=== PATIENT | male | born 1955 | race Caucasian/White ===

== ENCOUNTER 2023-03-31 11:53 | Outpatient (REF) | payer MEDICARE, SELFPAY ==
[2023-03-31 14:55] LABS: HCT 44.1 % (40.0-50.0); HGB 14.4 g/dL (13.5-17.5); MCHC 32.7 % (32.0-36.0); MCV 95 fL (80-95); MPV 9.2 fL (8.0-11.0); Platelet Count 321 10^3/uL (130-400); RBC 4.64 10^6/uL (4.36-5.78); RDW-SD 48.7 fL; WBC 6.34 10^3/uL (4.4-10.8)
[2023-03-31 15:25] LABS: Hemoglobin A1C 5.2 % (<5.7)
[2023-03-31 16:20] LABS: ALT 16 U/L (16-63); AST 14 U/L (15-37); Albumin 3.7 g/dL (3.4-5.0); Alkaline Phosphatase 59 U/L (46-116); Anion Gap 6.1 mmol/L (3-11); BUN 17 mg/dL (7-18); Bilirubin, Total 0.9 mg/dL (0.2-1.0); CO2 27.9 mmol/L (21.0-32.0); Calcium 8.7 mg/dL (8.5-10.1); Calculated LDL 76 mg/dL (<100); Chloride 106 mmol/L (98-107); Cholesterol 173 mg/dL (<200); Estimated GFR 81.98 (mL/min/1.73m2); Glucose 98 mg/dL (74-106); HDL Cholesterol 88 mg/dL (40-60); Potassium 4.5 mmol/L (3.5-5.1); Sodium 140 mmol/L (136-145); TSH 1.39 uIU/mL (0.36-3.74); Total Protein 6.5 g/dL (6.4-8.2); Triglyceride 48 mg/dL (<150); Vitamin B12 190 pg/mL (193-986)
[2023-03-31 16:47] LABS: FREE T4 0.83 ng/dL (0.76-1.46)
[2023-04-05 10:07] LABS: Methylmalonic Acid 0.25 nmol/mL (<=0.40)
== END 2023-03-31 11:54 | disposition home or self-care (01) ==
LOC: NCHCN 11:53
PROVIDERS: Visit Provider Physician Assistant
DX: Z12.5 Encounter for screening for malignant neoplasm of prostate (principal); Z13.1 Encounter for screening for diabetes mellitus; Z13.220 Encounter for screening for lipoid disorders; G62.9 Polyneuropathy, unspecified
CPT/HCPCS: 80053; 80061; 80186; 84153; 85027; 82607; 83036; 84439; 84443

== ENCOUNTER → 2023-09-23 10:49 | Outpatient (BNVA) | payer MEDICARE, SELFPAY | PROVIDERS: PCP Physician Assistant; Referring Provider Physician Assistant; Visit Provider Physical Therapy Assistant | DX: Z12.11 Encounter for screening for malignant neoplasm of colon (principal) ==

== ENCOUNTER 2023-10-07 07:34 | Day surgery (SDC) | payer MEDICARE, SELFPAY ==
--- NOTE | 2023-10-06 17:09 | W.PM.DSUDISC ---
Date of service: 10/07/23 Time of Service: 10:04 Discharge Plan Disposition Patient Disposition: Home Condition: Good Discharge Details Reason For Visit: screening colonoscopy Attending Provider: Bro Rosenbaum Primary Care Provider: Elroy Rader Home Meds and New Rx's Prescriptions: Continued mecobalamin (vitamin B12) 1,000 mcg tablet,chewable 1,000 mcg PO DAILY hydroxyzine HCl 25 mg tablet 25 mg PO QHS Patient Comments: Pt. stated has not used in awhile gabapentin 100 mg capsule 100 mg PO TID Patient Comments: Pt. states has not started yet sertraline [Zoloft] 25 mg tablet 25 mg PO DAILY Discontinued polyethylene glycol 3350 17 gram/dose powder 238 g PO ONCE Qty: 238 0RF Rx Instructions: take per colonoscopy instructions bisacodyl [Dulcolax (bisacodyl)] 5 mg tablet,delayed release (DR/EC) 5 mg PO ONCE Qty: 4 0RF Rx Instructions: take per colonoscopy instructions Discharge Instructions Instructions: Diverticulosis (GEN), Colorectal Polyps (GEN), Diverticulosis Diet (GEN) Additional Instructions: Aftab, we were able to complete your colonoscopy today without any issues. I did find a total of 4 polyps. These were small to medium size. I removed these all completely, and I will have them tested to determine the nature of the polyps, which will inform us regarding the timing of your next colonoscopy. Incidentally, you also have some diverticulosis. These are weak spots in the muscular portion of the colon wall that typically accumulate as we age. I have attached a little bit of information here regarding both diverticula as well as colon and rectal polyps. Once I have the report from the polyp examination, I will be in touch with my recommendations. If you have any questions in the meantime, please do not hesitate to call or ask. 1. If tolerated, consume a soft, low fiber diet for 1-2 days. 2. Do not drive, drink alcohol, operate machinery, make critical decisions, or do activities that require coordination or balance for 24 hours. 3. Because air was put into your colon during the procedure, expelling air from your rectum (passing gas or farting) is normal. 4. You may not have a bowel movement for 1-3 days because of the colonoscopy prep. This is normal. 5. Go directly to the emergency room if you notice any of the following: Develop chills (warm to touch), or if you have a thermometer and your temperature is above 101 Difficulty breathing or difficultly swallowing Persistent vomiting Severe abdominal pain, other than gas cramps Severe chest pain Black, tarry stools Any bleeding ? exceeding one tablespoon 6. Call your physician if the site where your intravenous was started becomes red, swollen, painful, and warm to touch. 7. Your physician has reviewed your pre-procedure medications. Please continue to take those medications as previously ordered. You will be given specific information/education regarding any changes to your medications before leaving. Activity:: Activity as Tolerated Diet:: As Tolerated Discharge Orders Discharge Orders: Discharge Order (Routine); Ordered 10/06/23 Ordered By: Bro Rosenbaum DS: Diagnosis Discharge Diagnosis (1) Encounter for screening colonoscopy: Status: Acute Asessment and Plan: Follow-up on polyp report
--- NOTE | 2023-10-06 17:10 | COLE_ITS ---
Date of service: 10/07/23 Time of Service: 10:06 Colonoscopy Report Date of procedure: 10/07/23 Pre-op diagnosis general: screening colonoscopy Post-op diagnosis procedure note: other (Colon polyps, diverticulosis) Procedure: Colonoscopy with polypectomy Surgeon: Bro Rosenbaum Anesthesia Type: General:No Airway Estimated blood loss (mL): 5 Pathology: other (0.5 cm cecal polyp, 0.5 cm ascending colon polyp, 0.25 cm polyps in the rectum x 2) Complications: None Disposition: same day Indications: Aftab is a 68-year-old male who needs his first screening colonoscopy Prep: Miralax/Dulcolax Procedure Start Time: 09:38 Procedure End Time: 09:55 Retraction Time: 11 Findings: 0.5 cm cecal polyp, 0.5 cm ascending colon polyp, 0.25 cm polyps in the rectum x 2; diverticulosis Procedure Description: After the induction of anesthesia, and with the patient in left lateral decubitus position, I began by performing an external anorectal exam.? Perineum and skin were normal, as was the anal verge.? There was no evidence of external hemorrhoids.? Next, I performed a digital rectal exam.? I did not appreciate any abnormal findings.? Next, I advanced a colonoscope into the rectal vault.? I performed retroflexion.? This was normal.? Using insufflation, I then advanced the colonoscope beyond the rectal folds and into the sigmoid colon before advancing towards the cecum.? There is diverticulosis extending from the sigmoid colon up through the descending colon. This was removed with cold forceps without any significant bleeding. Transverse and ascending colon is spared.? The scope was noted to be in the cecum by identification of the ileocecal valve and appendiceal orifice.? Just a few centimeters from the appendiceal orifice was a 0.5 cm cecal polyp. It was mostly flat. I then began withdrawing the colonoscope using repeated irrigation as necessary for full evaluation of the colonic mucosa. There was another 0.5 cm polyp in the ascending colon. This was slightly more pedunculated. This was also removed with cold forceps without any issues. ?Once the scope was withdrawn to the level of the rectum, great care was taken to examine portions of the rectal folds.? Around 25 cm from the anal verge I found 2 more polyps. These were both flat, each was less than 0.25 cm. These were both removed with cold forceps without any issues. Finally, the scope was withdrawn and the patient was brought to the same-day surgery recovery unit as the anesthetic wore off. ?The findings and instructions were shared with the patient prior to discharge. [place] Bowel Prep [place] Bowel Prep Right Colon: 3 Left Colon: 3 Transverse Colon: 3 Total Score: 9
[2023-10-07 07:40] VITALS: BP 151/88; PULSE 60; RESP 18; TEMP 36.2; O2SAT 100
[2023-10-07] MEDS: Lactated Ringers 1,000 ML 80 ML IV (08:02)
--- NOTE | 2023-10-07 08:14 | W.ANESPRE ---
General Info Date of Service Date Performed: 10/07/23 Height: 5 ft 7 in Weight: 72.1 kg Body Mass Index (BMI): 24.9 Surgical Procedure: Operation Date: 10/07/23 09:20 Proposed Procedure Side Surgeon p Noy Rosenbaum MD Meds Allergies and Home Medications Allergies Allergy/AdvReac Type Severity Reaction Status Date / Time No Known Drug Allergies Allergy Unknown Verified 10/06/23 14:09 Home Medication Medication Instructions Recorded gabapentin 100 mg capsule 100 mg PO TID 07/06/23 hydroxyzine HCl 25 mg tablet 25 mg PO QHS 07/06/23 mecobalamin (vitamin B12) 1,000 1,000 mcg PO DAILY 07/06/23 mcg chewable tablet sertraline 25 mg tablet (Zoloft) 25 mg PO DAILY 07/06/23 Current Visit Medications: Current Medications Generic Name Dose Route Start Last Admin Trade Name Freq PRN Reason Stop Dose Admin Hyoscyamine Sulfate 0.125 mg 10/06/23 17:11 Hyoscyamine 0.125 Mg Sl/Oral/Chew SL 11/05/23 17:10 DIRECTED PRN Ringer's Solution 1,000 mls @ 80 mls/hr 10/07/23 06:00 10/07/23 08:02 IV 11/05/23 23:59 80 mls/hr INFUSION CAMERON Administration IV Miscellaneous Supplies 1 each 10/07/23 06:00 Iv Access IV 11/05/23 23:59 DIRECTED CAMERON Ondansetron HCl 4 mg 10/06/23 17:11 Ondansetron 4 Mg/2 Ml Vial IVP 11/05/23 17:10 Q4H PRN PRN Nausea / Vomiting Sodium Chloride 0 ml 10/07/23 06:00 Normal Saline Flush 10 Ml Syr IV 11/05/23 23:59 PRN PRN Sodium Chloride 0 ml 10/07/23 06:00 Normal Saline 10 Ml Vial IJ 11/05/23 23:59 DIRECTED PRN Sterile Water 0 ml 10/07/23 06:00 Water,Injection,Sterile 10 Ml Vial IJ 11/05/23 23:59 DIRECTED PRN PFSH Active Problems Active Problems: Problem Status Onset Code Encounter for screening colonoscopy Z12.11 Elevated PSA R97.20 Medical History Medical History Foot pain Chronic depression Peripheral neuropathy Tobacco Smoking/Tobacco Use Status: Never Alcohol Alcohol Intake: current Alcohol intake frequency: 3 or more drinks per day Alcohol type: hard liquor Substance Use Substance use: Never Substance use type: does not use Vital Signs and Lab Results Vital Signs Most Recent Vital Signs in EMR: Most Recent Vital Signs Temp Pulse Resp BP Pulse Ox 36.2 C L 60 18 151/88 H 100 10/07/23 07:40 10/07/23 07:40 10/07/23 07:40 10/07/23 07:40 10/07/23 07:40 Lab Results Blood Type / Crossmatch: No Data to Display Complete Blood Count: No Data to Display Complete Metabolic Panel: No Data to Display Liver Function Panel: No Data to Display Coagulation Panel: No Data to Display Cardiac Panel: No Data to Display Arterial Blood Gas: No Data to Display Venous Blood Gas: No Data to Display Pancreas Panel: No Data to Display Thyroid Panel: No Data to Display Infectious Disease: No Data to Display Blood Cultures: No Data to Display Toxicology Panel: No Data to Display Anesthesia Assessment and Plan Anesthesia History Personal History: No History of Anesthesia Complications Family History: Family History Unknown Exercise Tolerance Exercise Tolerance: Metabolic Equivalents>4 Pertinent Negatives Pertinent Negatives: No Symptoms of GERD, No Major Cardiovascular Symptoms or Complaints and No Major Pulmonary Symptoms or Complaints Cardiac & Pulmonary Exam Cardiac Exam: Normal S1/S2 Heart Sounds Pulmonary Exam: Clear Bilateral Breath Sounds Implantable Cardiac Device Does patient have a Pacemaker or an ICD?: No Airway Exam Known Difficult Airway: No Mallampati Class: 2 Mouth Opening: Normal (> 3cm) Thyromental Distance: Greater than 3 cm Neck Range of Motion: Full ROM Neck Circumference: Normal Teeth Condition: Normal Dentition ASA Classification ASA Score: ASA 2 Emergency Case?: No NPO Status NPO Status: NPO Clears >2 hours, Solids >8 hours Anesthesia Plan Resuscitation Status: Full Code Anesthesia Technique: General Anesthesia Airway Planned: Natural Airway Monitors Used: Standard Monitors
[2023-10-07 08:57] VITALS: BMI 24.9
--- NOTE | 2023-10-07 09:46 | BOWEL_PTH ---
PATIENT: Aftab Ricks LOC: [facility] U#:[id number] AGE/SX: 68/M ROOM: RE10/07/[address]: Bro Rosenbaum MD : [id number] BED: DIS: 10/07/2023 SPEC #: [id number] RECD: 10/07/23 12:47 STATUS: NAOMIE REQ #: [id number] ARTHUR: 10/07/23 09:[address]: Bro Rosenbaum DEPT: Surgical Specimen RECD BY: Rachael Luna ENTERED: 10/07/23 12:47 SP TYPE: Bowel OTHR DR: Elroy Rader Tissues: 1 - BIOPSY BOWEL 2 - BIOPSY BOWEL 3 - BIOPSY BOWEL Procedures: GROSS AND MICRO LEVEL 4 Comments: [id number]
[2023-10-07 10:00] VITALS: BP 114/91; PULSE 65; RESP 16; TEMP 36.6; O2SAT 98
[2023-10-07 10:23] VITALS: BP 140/89; PULSE 60; RESP 18; TEMP 36.6; O2SAT 98
--- NOTE | 2023-10-07 11:01 | W.ANESPOSTOP ---
Postoperative Evaluation Date, Time and Location Date Performed: 10/07/23 Time Performed: 11:01 Patient Location: Day Surgery Unit Vital Signs Most Recent Imported Vital Signs: Most Recent Vital Signs Temp Pulse Resp BP Pulse Ox 36.6 C 60 18 140/89 98 10/07/23 10:23 10/07/23 10:23 10/07/23 10:23 10/07/23 10:23 10/07/23 10:23 Pain Score Most Recent Pain Score: Most Recent Pain Score Pain Level 0 10/07/23 10:23 Assessment Mental Status: Awake (Alert & Oriented to Patient Baseline) Airway and Respiratory Function: Patent airway with normal (patient baseline) respiratory exam Cardiovascular Function: Hemodynamically Stable Hydration Status: Adequately Hydrated Nausea & Vomiting: No Nausea or Vomiting Pain: Pt. Denies Any Pain Peripheral Nerve Block: Patient did not receive a nerve block
== END 2023-10-07 10:55 | disposition home or self-care (01) ==
PROVIDERS: PCP Physician Assistant; Visit Provider Surgery
PROC: 0DJD8ZZ Inspection of Lower Intestinal Tract, Via Natural or Artificial Opening Endoscopic (ICD-10-PCS; CPT 45378; principal; 2023-10-07 09:15)
DX: Z12.11 Encounter for screening for malignant neoplasm of colon (principal); D12.2 Benign neoplasm of ascending colon; K57.30 Diverticulosis of large intestine without perforation or abscess without bleeding; K62.1 Rectal polyp; D12.0 Benign neoplasm of cecum; D12.5 Benign neoplasm of sigmoid colon
CPT/HCPCS: 45380; 88305; J2704

== ENCOUNTER 2023-11-29 10:41 | Outpatient (REF) | payer MEDICARE, SELFPAY ==
[2023-11-29 16:28] LABS: Vitamin B12 942 pg/mL (193-986)
== END 2023-11-29 10:42 | disposition home or self-care (01) ==
LOC: NCHCN 10:41
PROVIDERS: PCP Physician Assistant; Visit Provider Physician Assistant
DX: E53.8 Deficiency of other specified B group vitamins (principal)
CPT/HCPCS: 82607

== ENCOUNTER → 2024-04-26 10:10 | Outpatient (BNVA) | payer MEDICARE, SELFPAY | PROVIDERS: PCP Physician Assistant; Referring Provider Physician Assistant; Visit Provider Podiatrist | DX: G60.9 Hereditary and idiopathic neuropathy, unspecified (principal); M25.571 Pain in right ankle and joints of right foot; M25.572 Pain in left ankle and joints of left foot | CPT/HCPCS: 99204 ==

== ENCOUNTER 2024-04-28 00:14 | Outpatient (CLI) | payer MEDICARE, SELFPAY ==
--- NOTE | 2024-04-28 10:10 | DI.RAD_ITS ---
Exam(s) XR FOOT LT COMPLETE EXAM: XR FOOT LT COMPLETE CLINICAL HISTORY: forefoot pain,m25.572, pain joints of foot. TECHNIQUE: 2D digital imaging was performed. Three views. COMPARISON: CR XR FOOT RT COMPLETE from 04/28/2024 FINDINGS: BONES: No acute fracture is present. No bony destructive lesion is seen. JOINTS: No dislocation present. SOFT TISSUE: Normal. IMPRESSION: Unremarkable radiographs of the left foot. DATA REPOSITORY: RADIATION DOSE DELIVERED:
--- NOTE | 2024-04-28 10:10 | DI.RAD_ITS ---
Exam(s) XR FOOT RT COMPLETE EXAM: XR FOOT RT COMPLETE CLINICAL HISTORY: forefoot pain,pain in joints,idiopathic peripheral neuropathy,M25.571. TECHNIQUE: 2D digital imaging was performed. Three views. COMPARISON: CR XR FOOT LT COMPLETE from 04/28/2024 FINDINGS: BONES: No acute fracture is present. No bony destructive lesion is seen. . Hardware in distal fibul a and medial malleolus. JOINTS: No dislocation present. Mild degenerative changes 1st MTP joint. Plantar arch is maintained SOFT TISSUE: Normal. IMPRESSION: Mild degenerative changes 1st MTP joint. DATA REPOSITORY: RADIATION DOSE DELIVERED:
== END 2024-04-28 00:34 ==
LOC: DI 00:14
PROVIDERS: PCP Physician Assistant; Visit Provider Podiatrist
DX: M25.571 Pain in right ankle and joints of right foot (principal); M25.572 Pain in left ankle and joints of left foot
CPT/HCPCS: 73630

== ENCOUNTER → 2024-05-25 11:16 | Outpatient (BNVA) | payer MEDICARE, SELFPAY | PROVIDERS: PCP Physician Assistant; Referring Provider Physician Assistant; Visit Provider Podiatrist | DX: G60.9 Hereditary and idiopathic neuropathy, unspecified (principal); M25.571 Pain in right ankle and joints of right foot; M25.572 Pain in left ankle and joints of left foot | CPT/HCPCS: 99214 ==

== ENCOUNTER → 2024-10-16 08:03 | Outpatient (BNVA) | payer MEDICARE, SELFPAY | PROVIDERS: PCP Physician Assistant; Referring Provider Physician Assistant; Visit Provider Psychiatry & Neurology Neurology | DX: M79.671 Pain in right foot (principal); M79.672 Pain in left foot; E53.8 Deficiency of other specified B group vitamins | CPT/HCPCS: 95908; 95923; 99215 ==

== ENCOUNTER → 2024-12-19 09:58 | Outpatient (BNVA) | payer MEDICARE, SELFPAY | PROVIDERS: PCP Physician Assistant; Referring Provider Physician Assistant; Visit Provider Psychiatry & Neurology Neurology | DX: M79.671 Pain in right foot (principal); M79.672 Pain in left foot; E53.8 Deficiency of other specified B group vitamins; I10 Essential (primary) hypertension | CPT/HCPCS: 99214 ==

== ENCOUNTER 2025-02-13 15:33 | Outpatient (REF) | payer MEDICARE, SELFPAY ==
[2025-02-13 15:45] LABS: HCT 43.1 % (40.0-50.0); HGB 14.4 g/dL (13.5-17.5); MCH 31.4 pg (27.0-33.0); MCHC 33.4 % (32.0-36.0); MCV 94 fL (80-95); MPV 9.2 fL (8.0-11.0); Platelet Count 327 10^3/uL (130-400); RBC 4.58 10^6/uL (4.36-5.78); RDW 12.7 % (11.8-14.1); RDW-SD 44.1 fL; WBC 7.13 10^3/uL (4.4-10.8)
[2025-02-13 16:04] LABS: PTT Activated 26.2 sec (20.6-30.2); Prothrombin Time 10.1 sec (9.1-11.1)
== END 2025-02-13 15:34 | disposition home or self-care (01) ==
LOC: NCHCN 15:33
PROVIDERS: PCP Physician Assistant; Visit Provider Physician Assistant
DX: R23.3 Spontaneous ecchymoses (principal)
CPT/HCPCS: 85027; 85610; 85730

== ENCOUNTER → 2025-03-20 08:37 | Outpatient (BNVA) | payer MEDICARE, SELFPAY | PROVIDERS: PCP Physician Assistant; Referring Provider Physician Assistant; Visit Provider Psychiatry & Neurology Neurology | DX: M79.671 Pain in right foot (principal); M79.672 Pain in left foot; E53.8 Deficiency of other specified B group vitamins; I10 Essential (primary) hypertension | CPT/HCPCS: 99214 ==